=== PATIENT | female | born 1950 | race Caucasian/White ===

== ENCOUNTER 2016-07-18 09:15 | Outpatient (CLI) | payer MEDICARE | END 2016-07-18 09:16 | LOC: LAB 09:15 | PROVIDERS: ATTEND Clinical Nurse Specialist Medical-Surgical | DX: E55.9 Vitamin D deficiency, unspecified (principal); M89.9 Disorder of bone, unspecified | CPT/HCPCS: 36415; 82306; 83970 ==

== ENCOUNTER 2016-07-22 10:41 | Outpatient (CLI) | payer MEDICARE | END 2016-07-22 10:42 | LOC: LABRHC 10:41 | PROVIDERS: ATTEND Family Medicine | DX: R30.0 Dysuria (principal) | CPT/HCPCS: 87086 ==

== ENCOUNTER 2016-08-08 14:53 | Outpatient (CLI) | payer MEDICARE | END 2016-08-08 14:54 | LOC: LAB 14:53 | PROVIDERS: ATTEND Family Medicine | DX: R73.9 Hyperglycemia, unspecified (principal) | CPT/HCPCS: 36415; 83036 ==

== ENCOUNTER 2016-11-21 09:19 | Outpatient (CLI) | payer MEDICARE ==
[2016-11-21 10:05] LABS: eGFR (African) > 60; eGFR (Non-African) > 60
== END 2016-11-21 09:20 ==
LOC: LAB 09:19
PROVIDERS: ATTEND Family Medicine
DX: E78.2 Mixed hyperlipidemia (principal)
CPT/HCPCS: 36415; 80053; 80061

== ENCOUNTER 2017-04-16 11:20 | Outpatient (CLI) | payer MEDICARE | END 2017-04-16 11:21 | LOC: LAB 11:20 | PROVIDERS: ATTEND Family Medicine | DX: E03.9 Hypothyroidism, unspecified (principal) | CPT/HCPCS: 36415; 84443 ==

== ENCOUNTER 2017-05-28 14:03 | Outpatient (CLI) | payer MEDICARE ==
[2017-05-28 14:50] LABS: eGFR (African) > 60; eGFR (Non-African) > 60
== END 2017-05-28 14:04 ==
LOC: LAB 14:03
PROVIDERS: ATTEND Family Medicine
DX: E03.9 Hypothyroidism, unspecified (principal); E78.2 Mixed hyperlipidemia; E55.9 Vitamin D deficiency, unspecified
CPT/HCPCS: 36415; 80053; 80061; 82306; 84439; 84443

== ENCOUNTER 2017-07-14 10:31 | Outpatient (CLI) | payer MEDICARE | END 2017-07-14 10:32 | LOC: LAB 10:31 | PROVIDERS: ATTEND Family Medicine | DX: E03.9 Hypothyroidism, unspecified (principal) | CPT/HCPCS: 36415; 84443 ==

== ENCOUNTER 2017-11-26 11:20 | Outpatient (CLI) | payer MEDICARE | END 2017-11-26 11:22 | LOC: LAB 11:20 | PROVIDERS: ATTEND Family Medicine | DX: Z86.39 Personal history of other endocrine, nutritional and metabolic disease (principal); E55.9 Vitamin D deficiency, unspecified; E03.9 Hypothyroidism, unspecified | CPT/HCPCS: 36415; 82306; 82607; 84439; 84443 ==

== ENCOUNTER 2018-06-17 14:40 | Outpatient (CLI) | payer MEDICARE | END 2018-06-17 14:42 | LOC: LAB 14:40 | PROVIDERS: ATTEND Family Medicine | DX: E03.9 Hypothyroidism, unspecified (principal); R30.0 Dysuria | CPT/HCPCS: 36415; 84443; 87086 ==

== ENCOUNTER 2018-08-12 12:11 | Outpatient (CLI) | payer MEDICARE ==
[2018-08-12 12:40] LABS: COLOR,URINE YELLOW (YELLOW)
[2018-08-12 12:41] LABS: APPEARANCE,URINE CLEAR (CLEAR); OCCULT BLOOD,URINE NEGATIVE (NEGATIVE); PH URINE 5.5 (5.0 - 8.0); UROBILINOGEN URINE 0.2 Eu (0.2-1.0)
== END 2018-08-12 12:13 ==
LOC: LAB 12:11
PROVIDERS: ATTEND Family Medicine
DX: R53.0 Neoplastic (malignant) related fatigue (principal)
CPT/HCPCS: 81002; 87086

== ENCOUNTER 2019-03-02 10:16 | Outpatient (CLI) | payer MEDICARE ==
[2019-03-02 10:43] LABS: BASOPHILS % 0.3 % (0.0-1.5); NEUTROPHILS # 2.8 # k/uL (1.4-7.7)
[2019-03-02 11:42] LABS: eGFR (Non-African) > 60
--- NOTE | 2019-03-02 12:31 | Diagnostic Imaging Report ---
PATIENT MR#: [id number] PATIENT PATIENT NAME: CHANDRAKANT WOLFE DATE OF : 1950 REFERRING PHYSICIAN: Rachelle Figueroa EXAM DATE: 03/02/2019 ACCESSION NUMBER: [id number] EXAM DESCRIPTION: ABDOMEN 1VIEW HISTORY: BLOATING, DISCOMFORT FOR X2 MONTHS COMPARISON: No pertinent prior studies are available at this time. ABDOMINAL XRAY, 2 FRONTAL VIEWS: Bowel gas pattern: There is moderate fecal loading of the ascending and proximal transverse colon. No evidence of obstruction. Calcifications: No findings to suggest nephrolithiasis by x-ray sensitivity. Skeleton: L4-5 posterior fusion hardware. Right hip arthroplasty with intact appearance. IMPRESSION: Mild stool distention of the right sided colon, without evidence of obstruction. Read by: Dr. Boston Arellano Transcribed by: Boston Arellano Transcribed Date: 03/02/2019 12:31:04 PM Electronically signed by: Dr. Boston Arellano Date signed: 03/02/2019 12:31:04 PM
== END 2019-03-02 10:21 ==
LOC: LAB 10:16
PROVIDERS: ATTEND Family Medicine
DX: E03.9 Hypothyroidism, unspecified (principal); E55.9 Vitamin D deficiency, unspecified; E53.8 Deficiency of other specified B group vitamins; R14.0 Abdominal distension (gaseous)
CPT/HCPCS: 36415; 74018; 80053; 82306; 82607; 84443; 85025